=== PATIENT | female | born 1975 | race Caucasian/White ===

== ENCOUNTER → 2018-07-31 15:10 | Outpatient (CLI) | payer OTHER, SELFPAY ==
[2018-07-31 15:30] LABS: Absolute Lymphocyte Count 2.77 X10^3/ul (0.83-4.51); Absolute Neutrophil Count 5.6 X10^3/uL (2.0-7.7); Basophil# 0.02 X10^3/uL; Basophil% 0.2 % (0-1); Eosinophil# 0.12 X10^3/uL; Eosinophils% 1.4 % (0-5); Hematocrit 40.9 % (37-47); Lymphocyte # 2.77 X10^3/ul (4.0); Lymphocyte % 31.2 % (19-41); Mean Corp Hgb Conc 34.2 g/gl (32-36); Mean Corpuscular Hgb 27.9 pg (27.0-32.0); Mean Corpuscular Volume 81.6 fL (81-99); Mean Platelet Vol. 9.8 fl (6.2-12.0); Monocyte# 0.39 X10^3/uL; Monocyte% 4.4 % (0-10); Neutrophil # 5.57 X10^3/uL (2.7-7.7); Neutrophil % 62.7 % (47-70); POSITIVE COUNT NO; POSITIVE DIFFERENTIAL NO; POSITIVE MORPHOLOGY NO; Platelet Count 341 K/mm3 (150-450); RBC Distribution Width CV 13.5 % (11.6-14.6); Red Blood Count 5.01 M/mm3 (4.2-5.4); White Blood Count 8.9 K/mm3 (4.4-11.0)
[2018-07-31 16:36] LABS: ALB/GLOB Ratio 0.9 RATIO (0.9-2.4); AST(SGOT) 16 U/L (15-37); Alanine Aminotransfer ALT/SGPT 28 U/L (13-56); Albumin, Serum 3.6 g/dL (3.2-5.0); Alkaline Phosphatase 68 U/L (45-117); Amylase 25 U/L (25-115); Anion Gap 13 (5-15); BUN 12 mg/dL (7-18); BUN/Creat Ratio 19.7 RATIO (10-20); Calcium,Total 8.7 mg/dL (8.5-10.1); Chloride 102 mmol/L (98-107); Creatinine, Serum 0.61 mg/dL (0.55-1.02); EST Glomerular Filtration Rate 114 mL/min (>60); Est Glom Filt Rate - Afr Amer 138 mL/min (>60); Globulin 3.9 g/dL (2.2-4.2); Glucose 253 mg/dL (74-106); Lipase 126 U/L (73-393); Potassium 3.8 mmol/L (3.5-5.1); Protein, Total 7.5 g/dL (6.4-8.2); Sodium Level 134 mmol/L (136-145); T4 Free Direct 1.11 ng/dL (0.76-1.46); Thyroid Stim Hormone (TSH) 1.13 uIU/mL (0.358-3.74)
[2018-08-06 12:41] LABS: EBV Acute VCA IgM < 36.0 U/mL (0.0-35.9); EBV Early Antigen IgG 18.8 U/mL (0.0-8.9); EBV-VCA IgG > 600.0 U/mL (0.0-17.9)
== END ==
PROVIDERS: Visit Provider Nurse Practitioner
DX: R16.1 Splenomegaly, not elsewhere classified (principal); R11.2 Nausea with vomiting, unspecified; R63.4 Abnormal weight loss; R19.7 Diarrhea, unspecified
CPT/HCPCS: 80053; 82150; 83690; 84439; 84443; 85025; 86663; 86664; 86665

== ENCOUNTER → 2019-03-08 | Outpatient (CLI) | payer OTHER, SELFPAY ==
[2019-03-08 17:24] VITALS: BMI 34.1
[2019-03-09 01:05] LABS: Rheumatoid Factor < 10.0 IU/mL (<15)
[2019-03-11 12:32] LABS: EBV Acute VCA IgM < 36.0 U/mL (0.0-35.9); EBV Early Antigen IgG 14.6 U/mL (0.0-8.9); EBV Nuclear Antigen IgG > 600.0 U/mL (0.0-17.9); EBV-VCA IgG > 600.0 U/mL (0.0-17.9)
[2019-03-11 12:47] LABS: ANTINUCLEAR ANTIBODIES DIRECT Negative (Negative)
== END | disposition home or self-care (01) ==
LOC: OLS.AHF 23:44 → LABSPEC 23:52
PROVIDERS: Referring Provider Nurse Practitioner; Visit Provider Nurse Practitioner
DX: E11.65 Type 2 diabetes mellitus with hyperglycemia (principal); E11.8 Type 2 diabetes mellitus with unspecified complications; M25.50 Pain in unspecified joint; R10.9 Unspecified abdominal pain; R53.83 Other fatigue
CPT/HCPCS: 86038; 86225; 86235; 86431; 86663; 86664; 86665

== ENCOUNTER → 2019-03-14 | Outpatient (CLI) | payer OTHER, SELFPAY ==
[2019-03-08 17:24] VITALS: BMI 34.1
== END | disposition home or self-care (01) ==
PROVIDERS: Referring Provider Nurse Practitioner; Visit Provider Nurse Practitioner
DX: C55 Malignant neoplasm of uterus, part unspecified (principal)
CPT/HCPCS: 86304